=== PATIENT | female | born 1980 | race Caucasian/White ===

== ENCOUNTER 2016-06-08 00:41 | Emergency (ER) | payer MEDICAID ==
[~2016-06-08] VITALS: Ht 172.7 cm; Wt 68.0 kg
[2016-06-08] MEDS ORDERED: HYDROCODONE/ACETAMINOPHEN 10/325MG TABLET PO ONE (07:30)
[2016-06-08] MEDS ORDERED: KETOROLAC 60MG/2ML VIAL IM ONE (07:30)
[2016-06-08 08:18] VITALS: BP 134/58
== END 2016-06-08 09:13 | disposition home or self-care (01) ==
LOC: ER 00:41
DX: S60.562A Insect bite (nonvenomous) of left hand, initial encounter (principal); L08.9 Local infection of the skin and subcutaneous tissue, unspecified; W57.XXXA Bitten or stung by nonvenomous insect and other nonvenomous arthropods, initial encounter; Y93.89 Activity, other specified; Y92.89 Other specified places as the place of occurrence of the external cause; R03.0 Elevated blood-pressure reading, without diagnosis of hypertension; Z88.1 Allergy status to other antibiotic agents; Z88.8 Allergy status to other drugs, medicaments and biological substances
CPT/HCPCS: 96372; 99283; J1885; Z7610

== ENCOUNTER 2016-06-24 23:26 | Emergency (ER) | payer MEDICAID ==
[~2016-06-24] VITALS: Ht 172.7 cm; Wt 72.0 kg
[2016-06-25 00:53] LABS: BASOPHILS % 0.5 % (0.0-2.0); EOSINOPHILS % 0.8 % (0.0-5.0); HEMOGLOBIN. 10.6 g/dL (12.0-16.0); LYMPHOCYTES % 44.2 % (20.0-50.0); MEAN CORPUSCULAR HEMOGLOBIN 26.8 pg (28.0-32.0); MEAN CORPUSCULAR VOLUME 81.3 fL (81.0-99.0); MEAN PLATELET VOLUME 7.9 fl (7.4-10.4); MONOCYTES % 6.7 % (2.0-8.0); NEUTROPHILS % 47.8 % (40.0-76.0); PLATELET 215 x1000/uL (130-400); RED BLOOD CELL COUNT 3.93 mill/uL (4.2-5.4); WHITE BLOOD COUNT 5.3 x1000/uL (4.5-11.0)
[2016-06-25 00:59] LABS: CHLORIDE 108 mEq/L (98-107); INDEX HEMOLYSI 1 (1-3); INDEX ICTERIC 1 (1-4); INDEX LIPEMIC 1 (1-3)
[2016-06-25 01:07] LABS: ALANINE AMINOTRANSFERASE 14 IU/L (13-61); ALBUMIN 3.5 g/dL (3.4-5.0); ANION GAP 14; CALCIUM 8.2 mg/dL (8.5-10.1); CARBON DIOXIDE 27 mEq/L (21-32); ETHANOL BLOOD < 10 mg/dL; UREA NITROGEN BLOOD 14 mg/dL (7-21); eGFR > 60 mL/min (>60)
[2016-06-25 02:04] LABS: CLARITY URINE CLOUDY (CLEAR); COLOR URINE YELLOW (YELLOW); GLUCOSE URINE NEGATIVE (NEGATIVE); KETONES URINE TRACE (NEGATIVE); LEUKOCYTE ESTERASE URINE 1+ (NEGATIVE); NITRITE URINE POSITIVE (NEGATIVE); OCCULT BLOOD URINE NEGATIVE (NEGATIVE); PROTEIN URINE NEGATIVE (NEGATIVE); SPECIFIC GRAVITY URINE 1.025 (1.005-1.030)
[2016-06-25 02:19] LABS: SQUAMOUS EPITHELIAL CELL URINE 1+ /lpf (RARE/1+)
[2016-06-25 02:20] LABS: BACTERIA URINE 1+; RBC URINE 0-2 /hpf (0-2)
[2016-06-25 02:43] LABS: *BARBITURATES SCREEN URINE NEGATIVE (NEGATIVE); *BENZODIAZEPINES SCREEN URINE NEGATIVE (NEGATIVE); *COCAINE SCREEN URINE NEGATIVE (NEGATIVE); CANNABINOID URINE SCREEN NEGATIVE (NEGATIVE); ECSTASY MDMA SCREEN URINE NEGATIVE (NEGATIVE); METHADONE URINE SCREEN NEGATIVE (NEGATIVE); OPIATES URINE SCREEN NEGATIVE (NEGATIVE); PHENCYCLIDINE URINE SCREEN NEGATIVE (NEGATIVE)
[2016-06-25] MEDS ORDERED: CIPROFLOXACIN HCL 250MG TABLET PO ONE (03:00)
[2016-06-25 03:04] LABS: *AMPHETAMINES SCREEN URINE PRESUMTIVE POSITIVE (NEGATIVE)
[2016-06-25 11:18] VITALS: BP 117/74
== END 2016-06-25 12:26 | disposition home or self-care (01) ==
LOC: ER 23:27
DX: F20.9 Schizophrenia, unspecified (principal); F15.10 Other stimulant abuse, uncomplicated; Z88.0 Allergy status to penicillin
CPT/HCPCS: 36415; 80053; 80305; 81001; 85025; 93005; 99285; G0482; 99284

== ENCOUNTER 2016-08-12 20:54 | Emergency (ER) | payer SELFPAY ==
[~2016-08-12] VITALS: Ht 170.2 cm; Wt 75.0 kg
[2016-08-13] MEDS ORDERED: IBUPROFEN 600MG TABLET PO ONE (02:45)
[2016-08-13] MEDS ORDERED: CYCLOBENZAPRINE 10MG TABLET PO ONE (02:45)
[2016-08-13 03:43] LABS: CLARITY URINE CLEAR (CLEAR); COLOR URINE YELLOW (YELLOW); GLUCOSE URINE NEGATIVE (NEGATIVE); KETONES URINE NEGATIVE (NEGATIVE); LEUKOCYTE ESTERASE URINE NEGATIVE (NEGATIVE); NITRITE URINE NEGATIVE (NEGATIVE); OCCULT BLOOD URINE 3+ (NEGATIVE); PROTEIN URINE NEGATIVE (NEGATIVE); SPECIFIC GRAVITY URINE 1.022 (1.005-1.030)
[2016-08-13 04:00] VITALS: BP 126/74
== END 2016-08-13 05:25 | disposition home or self-care (01) ==
LOC: ER 20:55
DX: M54.5 Low back pain (principal); J45.909 Unspecified asthma, uncomplicated; F17.200 Nicotine dependence, unspecified, uncomplicated; Z88.0 Allergy status to penicillin; Z88.8 Allergy status to other drugs, medicaments and biological substances; Z98.51 Tubal ligation status
CPT/HCPCS: 71010; 72100; 73130; 81001; 81025; 99285

== ENCOUNTER 2016-09-07 22:17 | Emergency (ER) | payer SELFPAY ==
[~2016-09-07] VITALS: Ht 172.7 cm; Wt 71.0 kg
[2016-09-08] MEDS ORDERED: KETOROLAC 60MG/2ML VIAL IM ONE (02:45)
[2016-09-08] MEDS ORDERED: TRAMADOL 50MG TABLET PO ONE (02:45)
[2016-09-08 06:04] VITALS: BP 119/78
== END 2016-09-08 06:18 | disposition home or self-care (01) ==
LOC: ER 09-08 02:21
DX: M54.30 Sciatica, unspecified side (principal); J45.909 Unspecified asthma, uncomplicated; F17.200 Nicotine dependence, unspecified, uncomplicated; Z88.0 Allergy status to penicillin
CPT/HCPCS: 81025; 96372; 99283; J1885; Z7610

== ENCOUNTER 2016-09-11 20:23 | Emergency (ER) | payer SELFPAY ==
[~2016-09-11] VITALS: Ht 170.2 cm; Wt 81.0 kg
[2016-09-12] MEDS ORDERED: IBUPROFEN 600MG TABLET PO ONE (01:30)
[2016-09-12 01:32] VITALS: BP 149/67
== END 2016-09-12 02:40 | disposition home or self-care (01) ==
LOC: ER 20:23
DX: M25.561 Pain in right knee (principal); J45.909 Unspecified asthma, uncomplicated; F31.9 Bipolar disorder, unspecified; F20.9 Schizophrenia, unspecified; F17.200 Nicotine dependence, unspecified, uncomplicated; Z88.0 Allergy status to penicillin; Z90.89 Acquired absence of other organs
CPT/HCPCS: 73562; 99284; Z7610

== ENCOUNTER 2016-10-28 11:31 | Emergency (ER) | payer MEDICAID ==
[~2016-10-28] VITALS: Ht 170.2 cm; Wt 85.0 kg
[2016-10-28] MEDS ORDERED: ACETAMINOPHEN 325MG TABLET PO STA (14:02)
[2016-10-28 14:24] LABS: BASOPHILS % 0.7 % (0.0-2.0); EOSINOPHILS % 0.8 % (0.0-5.0); HEMATOCRIT. 33.2 % (36.0-48.0); HEMOGLOBIN. 10.7 g/dL (12.0-16.0); LYMPHOCYTES % 36.5 % (20.0-50.0); MEAN CORPUSCULAR HEMOGLOBIN 25.4 pg (28.0-32.0); MEAN CORPUSCULAR VOLUME 78.5 fL (81.0-99.0); MEAN PLATELET VOLUME 8.5 fl (7.4-10.4); PLATELET 191 x1000/uL (130-400); RED BLOOD CELL COUNT 4.23 mill/uL (4.2-5.4); RED CELL DISTRIBUTION WIDTH 18.5 % (11.6-14.6)
[2016-10-28 14:32] LABS: CHLORIDE 107 mEq/L (98-107)
[2016-10-28 14:40] LABS: CARBON DIOXIDE 29 mEq/L (21-32)
[2016-10-28 14:45] VITALS: BP 121/61
== END 2016-10-28 16:34 | disposition home or self-care (01) ==
LOC: ER 11:31
DX: J45.909 Unspecified asthma, uncomplicated (principal); R04.2 Hemoptysis; D50.9 Iron deficiency anemia, unspecified; F17.200 Nicotine dependence, unspecified, uncomplicated; Z88.0 Allergy status to penicillin; Z88.8 Allergy status to other drugs, medicaments and biological substances
CPT/HCPCS: 36415; 71010; 80053; 81025; 85025; 93005; 99285

== ENCOUNTER 2016-11-07 21:01 | Emergency (ER) | payer MEDICAID, OTHER ==
[~2016-11-07] VITALS: Ht 170.2 cm; Wt 69.0 kg
[2016-11-07] MEDS ORDERED: METHYLPREDNISOLONE SOD SUCC 125 MG/2 ML VIAL IV STA (21:13)
[2016-11-07 22:16] VITALS: BP 120/58
== END 2016-11-07 22:17 | disposition home or self-care (01) ==
LOC: ER 21:01
DX: J45.901 Unspecified asthma with (acute) exacerbation (principal); F31.9 Bipolar disorder, unspecified; Z88.1 Allergy status to other antibiotic agents; Z88.8 Allergy status to other drugs, medicaments and biological substances; F17.210 Nicotine dependence, cigarettes, uncomplicated; Z98.890 Other specified postprocedural states
CPT/HCPCS: 96374; 99284; J2930; Z7610

== ENCOUNTER 2016-12-09 19:51 | Emergency (ER) | payer MEDICAID, OTHER ==
[~2016-12-09] VITALS: Ht 170.2 cm; Wt 79.0 kg
[2016-12-10] MEDS ORDERED: ACETAMINOPHEN 325MG TABLET PO STA (04:43)
[2016-12-10] MEDS ORDERED: SODIUM CHLORIDE 0.9% 1,000 ML IV ONE (04:43)
[2016-12-10 05:12] LABS: BASOPHILS % 0.3 % (0.0-2.0); EOSINOPHILS % 1.8 % (0.0-5.0); HEMATOCRIT. 36.8 % (36.0-48.0); HEMOGLOBIN. 12.3 g/dL (12.0-16.0); MEAN CORPUSCULAR HEMOGLOBIN 28.4 pg (28.0-32.0); MEAN CORPUSCULAR VOLUME 85.1 fL (81.0-99.0); MEAN PLATELET VOLUME 8.7 fl (7.4-10.4); MONOCYTES % 8.1 % (2.0-8.0); NEUTROPHILS % 53.8 % (40.0-76.0); PLATELET 172 x1000/uL (130-400); RED BLOOD CELL COUNT 4.33 mill/uL (4.2-5.4); RED CELL DISTRIBUTION WIDTH 20.5 % (11.6-14.6)
[2016-12-10 05:19] LABS: CARBON DIOXIDE 30 mEq/L (21-32); CHLORIDE 107 mEq/L (98-107)
[2016-12-10 06:59] LABS: CLARITY URINE CLEAR (CLEAR); COLOR URINE YELLOW (YELLOW); GLUCOSE URINE NEGATIVE (NEGATIVE); KETONES URINE NEGATIVE (NEGATIVE); LEUKOCYTE ESTERASE URINE NEGATIVE (NEGATIVE); NITRITE URINE NEGATIVE (NEGATIVE); OCCULT BLOOD URINE NEGATIVE (NEGATIVE); PH URINE 5.5 (4.5-8.0); PROTEIN URINE NEGATIVE (NEGATIVE); SPECIFIC GRAVITY URINE 1.024 (1.005-1.030); UROBILINOGEN URINE 0.2 E.U./dL (0.2-1.0)
[2016-12-10 12:45] VITALS: BP 118/68
== END 2016-12-10 13:05 | disposition left against medical advice (07) ==
LOC: ER 19:51
DX: T74.21XA Adult sexual abuse, confirmed, initial encounter (principal); N93.9 Abnormal uterine and vaginal bleeding, unspecified; K62.89 Other specified diseases of anus and rectum; R11.2 Nausea with vomiting, unspecified; R10.9 Unspecified abdominal pain; J45.909 Unspecified asthma, uncomplicated; F20.9 Schizophrenia, unspecified; F90.9 Attention-deficit hyperactivity disorder, unspecified type; F43.10 Post-traumatic stress disorder, unspecified; F12.10 Cannabis abuse, uncomplicated; F15.10 Other stimulant abuse, uncomplicated; F17.200 Nicotine dependence, unspecified, uncomplicated; Z88.0 Allergy status to penicillin
CPT/HCPCS: 36415; 76830; 76856; 80048; 81003; 81025; 85025; 86850; 86900; 86901; 96360; 96361; 99285; Z7610; J7030

== ENCOUNTER 2016-12-13 08:03 | Emergency (ER) | payer OTHER ==
[~2016-12-13] VITALS: Ht 170.2 cm; Wt 77.0 kg
[2016-12-13] MEDS ORDERED: SODIUM CHLORIDE 0.9% 1,000 ML IV ONE (14:11)
[2016-12-13] MEDS ORDERED: ONDANSETRON HCL 4MG/2ML VIAL IV STA (14:11)
[2016-12-13] MEDS ORDERED: MORPHINE SULFATE 4 MG/ML CPJ (NOT FOR IM USE) IV STA (14:11)
[2016-12-13 14:43] LABS: BASOPHILS % 0.4 % (0.0-2.0); EOSINOPHILS % 0.6 % (0.0-5.0); HEMOGLOBIN. 12.1 g/dL (12.0-16.0); LYMPHOCYTES % 16.7 % (20.0-50.0); MEAN CORPUSCULAR HEMOGLOBIN 28.5 pg (28.0-32.0); MEAN CORPUSCULAR VOLUME 84.6 fL (81.0-99.0); MEAN PLATELET VOLUME 8.7 fl (7.4-10.4); NEUTROPHILS % 75.3 % (40.0-76.0); PLATELET 161 x1000/uL (130-400); RED BLOOD CELL COUNT 4.25 mill/uL (4.2-5.4); RED CELL DISTRIBUTION WIDTH 19.5 % (11.6-14.6)
[2016-12-13 14:49] LABS: CHLORIDE 106 mEq/L (98-107)
[2016-12-13 14:51] LABS: PARTIAL THROMBOPLASTIN TIME 25.9 sec (23.4-31.0); PROTHROMBIN TIME 10.3 sec (9.4-11.6)
[2016-12-13 14:57] LABS: CARBON DIOXIDE 29 mEq/L (21-32)
[2016-12-13 14:58] LABS: HCG SCREEN NEGATIVE
[2016-12-13 16:26] LABS: CLARITY URINE CLEAR (CLEAR); COLOR URINE YELLOW (YELLOW); GLUCOSE URINE NEGATIVE (NEGATIVE); KETONES URINE NEGATIVE (NEGATIVE); LEUKOCYTE ESTERASE URINE TRACE (NEGATIVE); NITRITE URINE NEGATIVE (NEGATIVE); OCCULT BLOOD URINE NEGATIVE (NEGATIVE); PROTEIN URINE NEGATIVE (NEGATIVE); SPECIFIC GRAVITY URINE 1.007 (1.005-1.030); UROBILINOGEN URINE 0.2 E.U./dL (0.2-1.0)
[2016-12-13] MEDS ORDERED: IOHEXOL-300 100 ML BOTTLE ONE (16:38)
[2016-12-13 16:40] LABS: *AMPHETAMINES SCREEN URINE NEGATIVE (NEGATIVE); *BARBITURATES SCREEN URINE NEGATIVE (NEGATIVE); *BENZODIAZEPINES SCREEN URINE NEGATIVE (NEGATIVE); *COCAINE SCREEN URINE NEGATIVE (NEGATIVE); CANNABINOID URINE SCREEN NEGATIVE (NEGATIVE); METHADONE URINE SCREEN NEGATIVE (NEGATIVE); OPIATES URINE SCREEN NEGATIVE (NEGATIVE); PHENCYCLIDINE URINE SCREEN NEGATIVE (NEGATIVE)
[2016-12-13] MEDS ORDERED: LEVOFLOXACIN 500MG TABLET PO ONE (17:00)
[2016-12-13] MEDS ORDERED: MAGNESIUM/ALUMINUM HYDROXIDE/SIMETHICONE 30ML UDC PO ONE (18:30)
[2016-12-13] MEDS ORDERED: ONDANSETRON HCL 4MG/2ML VIAL IV ONE (19:30)
[2016-12-13] MEDS ORDERED: MORPHINE SULFATE 4 MG/ML CPJ (NOT FOR IM USE) IV ONE (19:30)
[2016-12-13 20:30] VITALS: BP 122/71
== END 2016-12-13 21:00 | disposition home or self-care (01) ==
LOC: ER 08:19
DX: N39.0 Urinary tract infection, site not specified (principal); J45.909 Unspecified asthma, uncomplicated; R10.11 Right upper quadrant pain; R10.31 Right lower quadrant pain; R11.0 Nausea; N89.8 Other specified noninflammatory disorders of vagina; F17.210 Nicotine dependence, cigarettes, uncomplicated; Z71.6 Tobacco abuse counseling; Z88.1 Allergy status to other antibiotic agents; Z88.8 Allergy status to other drugs, medicaments and biological substances
CPT/HCPCS: 36415; 71010; 74177; 80053; 80305; 81001; 83690; 84703; 85025; 85610; 85730; 87077; 87086; 96361; 96374; 96375; 96376; 99285; J2270; J2405; Q9967; J7030

== ENCOUNTER 2017-01-15 14:30 | Emergency (ER) | payer OTHER ==
[~2017-01-15] VITALS: Ht 170.2 cm; Wt 88.0 kg
[2017-01-15] MEDS ORDERED: ONDANSETRON HCL 4MG TABLET PO ONE (16:15)
[2017-01-15] MEDS ORDERED: KETOROLAC 60MG/2ML VIAL IM ONE (16:15)
[2017-01-15] MEDS ORDERED: TRAMADOL 50MG TABLET PO ONE (17:45)
[2017-01-15 18:58] VITALS: BP 116/68
== END 2017-01-15 18:59 | disposition home or self-care (01) ==
LOC: ER 14:38
DX: M79.1 Myalgia (principal); J45.909 Unspecified asthma, uncomplicated; Z88.1 Allergy status to other antibiotic agents; Z88.8 Allergy status to other drugs, medicaments and biological substances
CPT/HCPCS: 96372; 99283; J1885; Q0162

== ENCOUNTER 2025-01-15 04:47 | Emergency (ER) | payer MEDICAID, OTHER ==
[~2025-01-15] VITALS: Ht 172.7 cm; Wt 77.6 kg
[2025-01-15 04:49] VITALS: O2SAT 98
[2025-01-15 05:44] LABS: ASPARTATE AMINOTRANSFERASE 18 IU/L (<34); BILIRUBIN DIRECT < 0.1 mg/dL (<=3.0); BILIRUBIN TOTAL 0.3 mg/dL (0.1-1.0); PROTEIN TOTAL 6.9 g/dL (6.0-8.3)
[2025-01-15 05:45] LABS: COLOR URINE YELLOW (YELLOW)
[2025-01-15 05:46] LABS: CLARITY URINE HAZY (CLEAR); GLUCOSE URINE NEGATIVE (NEGATIVE); KETONES URINE NEGATIVE (NEGATIVE); NITRITE URINE NEGATIVE (NEGATIVE); OCCULT BLOOD URINE NEGATIVE (NEGATIVE); PH URINE 5.5 (4.5-8.0); PROTEIN URINE NEGATIVE (NEGATIVE); SPECIFIC GRAVITY URINE 1.027 (1.005-1.030)
[2025-01-15 05:47] LABS: LEUKOCYTE ESTERASE URINE NEGATIVE (NEGATIVE); UROBILINOGEN URINE 0.2 E.U./dL (0.2-1.0)
[2025-01-15 05:51] LABS: BASOPHILS % 0.5 % (0.0-2.0); EOSINOPHILS % 2.2 % (0.0-5.0); HEMATOCRIT. 37.7 % (36.0-48.0); HEMOGLOBIN. 12.3 g/dL (12.0-16.0); LYMPHOCYTES % 30.0 % (20.0-50.0); MEAN PLATELET VOLUME 8.7 fl (7.4-10.4); MONOCYTES % 12.3 % (2.0-8.0); NEUTROPHILS % 55.0 % (40.0-76.0); PLATELET 169 x1000/uL (130-400); RED BLOOD CELL COUNT 4.35 mill/uL (4.2-5.4); RED CELL DISTRIBUTION WIDTH 15.1 % (11.6-14.6)
[2025-01-15 05:59] LABS: CREATININE 0.9 mg/dL (0.6-1.0); UREA NITROGEN BLOOD 9 mg/dL (9-23)
[2025-01-15 06:28] LABS: SQUAMOUS EPITHELIAL CELL URINE FEW /lpf (RARE/1+)
[2025-01-15 06:29] LABS: WBC URINE 0-2 /hpf (0-2)
[2025-01-15 06:30] LABS: BACTERIA URINE NONE SEEN; RBC URINE 0-2 /hpf (0-2)
[2025-01-15 06:31] LABS: CALCIUM OXALATE CRYSTALS URINE 1+ /lpf
[2025-01-15] MEDS: ACETAMINOPHEN 325MG TABLET PO ONE (06:36)
[2025-01-15 07:48] LABS: HCG SCREEN NEGATIVE
[2025-01-15 08:08] VITALS: BP 98/61; PULSE 90; RESP 18; TEMP 36.8; O2SAT 98
[2025-01-15] MEDS ORDERED: ONDA-239 PO (08:35)
== END 2025-01-15 08:41 | disposition home or self-care (01) ==
LOC: ER 05:31
DX: J45.909 Unspecified asthma, uncomplicated (principal); R10.33 Periumbilical pain; Z90.89 Acquired absence of other organs; Z88.0 Allergy status to penicillin
CPT/HCPCS: 36415; 74176; 80048; 80076; 81003; 81025; 84703; 85025; 99284

== ENCOUNTER 2025-02-07 17:02 | Emergency (ER) | payer MEDICAID ==
[~2025-02-07] VITALS: Ht 167.6 cm; Wt 73.0 kg
[~2025-02-07 17:02] MED LIST: ONDA-239 PO
[2025-02-07 17:33] VITALS: TEMP 36.8; O2SAT 99
[2025-02-07] MEDS: LIDOCAINE HCL 1% 20ML VIAL INFIL ONE (21:30)
[2025-02-07] MEDS: TETANUS, DIPHTHERIA, PERTUSSIS VAC/PF 0.5ML (>10YR OLD) IM ONE (21:30)
[2025-02-07] MEDS ORDERED: CEPH500T MT (22:15)
[2025-02-07] MEDS ORDERED: ACET-2708 MT (22:15)
[2025-02-07] MEDS ORDERED: SULF1TAB48 MT (22:15)
[2025-02-07 23:10] VITALS: BP 125/82; PULSE 93; RESP 18; O2SAT 100
== END 2025-02-07 23:50 | disposition home or self-care (01) ==
LOC: ER 17:02
DX: N76.4 Abscess of vulva (principal); J45.909 Unspecified asthma, uncomplicated; Z90.89 Acquired absence of other organs; Z88.0 Allergy status to penicillin
CPT/HCPCS: 99284; J2003